=== PATIENT | female | born 1985 | race Caucasian/White ===

== ENCOUNTER 2021-12-30 18:01 | Emergency (ER) | payer BC ==
[~2021-12-30] VITALS: Ht 170.2 cm; Wt 79.1 kg
[2021-12-30] MEDS ORDERED: VITAMIN B122500 MCG PO (18:22)
[2021-12-30] MEDS ORDERED: CALCIUM500 MG PO (18:23)
[2021-12-30] MEDS ORDERED: VITAMIN D325 MC2 PO (18:23)
== END 2021-12-30 19:08 | disposition home or self-care (01) ==
LOC: ED 18:01
DX: S80.02XA Contusion of left knee, initial encounter (principal); Z79.899 Other long term (current) drug therapy; X58.XXXA Exposure to other specified factors, initial encounter
CPT/HCPCS: 93971; 99283-25

== ENCOUNTER 2023-10-06 06:10 | Inpatient (IN) | payer BC, OTHER ==
[~2023-10-06] VITALS: Ht 167.6 cm; Wt 93.0 kg
--- NOTE | ~2023-10-06 | OR ---
[facility] [address] [place], [place] [address] Draft DATE OF OPERATION: 10/07/2023 SURGEON: Pau Bean MD INSURANCE CLAIMS SUPERVISOR: Faisal. PREOPERATIVE DIAGNOSES: Term , advanced maternal age, intolerance to labor, persistent posterior. POSTOPERATIVE DIAGNOSES: Term , advanced maternal age, intolerance to labor, persistent posterior, delivered. PROCEDURE: Primary section with low segment transverse uterine incision. ANESTHESIA: Epidural. ESTIMATED BLOOD LOSS: 800 mL. DRAINS: Womack catheter. INDICATIONS AND FINDINGS: The patient is a 38-year-old female 2, para 1, admitted at 40 weeks for induction secondary to AMA. She underwent artificial rupture of membranes with clear fluid. She failed to make significant change and was begun on Pitocin. She then became more uncomfortable and made cervical change and at 7 cm requested and received an epidural. Subsequent to this, she had a prolonged deceleration followed by a tachycardic episode and this was followed by decreased variability with recurrent late decelerations. These were persistent despite the Pitocin being off for quite some time and receiving subcu terbutaline and multiple position changes. Because of this, it was felt that she needed to be delivered emergently, especially as her cervix had not made any further change. She was taken to the operating room where she was delivered of a little boy via lower segment transverse uterine incision as a deflexed ROP position with Apgars of 7 and 8 and weight of 9 pounds 15 ounces. Clear fluid was noted on entry into the uterus. The uterus, tubes, ovaries, and placenta otherwise were normal. PATIENT NAME: VANITA WHITE OPERATIVE REPORT DATE OF : 81 REPORT #: [id number] PHYSICIAN: PAU BEAN MD PCP: NO PRIMARY CARE PHYSICIAN REPORT IS CONFIDENTIAL AND NOT TO BE RELEASED WITHOUT AUTHORIZATION [facility] [address] [place], [place] [address] Draft DESCRIPTION OF PROCEDURE: The patient was prepped and draped in the supine position. A Pfannenstiel skin incision was made and carried down through the fascia. The incision was extended laterally. The inferior and superior fascial flaps were created. The muscles were bluntly divided and the peritoneum entered bluntly and the incision extended bluntly. The Long retractor was placed. The uterine incision was made at the upper aspect of the peritoneal reflection. The baby was delivered with the above findings and handed off to the pediatric staff in attendance. The placenta was removed manually and the uterus explored with a lap tape assuring no remaining fragments. The edges of the incision were identified and the uterus was closed in 2 layers using 0 Monocryl. The first layer was a running locking stitch and the second was a vertical imbricating stitch. Additional suture was required near the left angle for control of bleeding on the upper aspect of the incision. Following this, the abdomen was irrigated, inspected, and appeared to be hemostatic. The Long retractor was removed. The peritoneum was identified and closed with running suture of 3-0 Vicryl. The muscles were brought together with interrupted sutures of 0 Vicryl. Bleeding points on the fascia were controlled with cautery as were the bleeding points on the muscle. This layer was irrigated and inspected and good hemostasis was noted. The fascia was closed from each angle to the midline with a running suture of 0 Vicryl. The subcu was irrigated and bleeding points controlled with cautery. The deep space was reapproximated with interrupted sutures of 3-0 Vicryl. The skin was closed with albino. All sponge and needle counts were correct. She tolerated the procedure well and was taken to the recovery room in good condition. MD JONH Paris/HELADIO /[id number] Copies: ~ PATIENT NAME: VANITA WHITE MIAH OPERATIVE REPORT DATE OF : 81 REPORT #: [id number] PHYSICIAN: PAU BEAN MD PCP: NO PRIMARY CARE PHYSICIAN REPORT IS CONFIDENTIAL AND NOT TO BE RELEASED WITHOUT AUTHORIZATION
[~2023-10-06 06:10] MED LIST: CALCIUM500 MG PO; VITAMIN B122500 MCG PO; VITAMIN D325 MC2 PO
[2023-10-06 06:58] LABS: HEMATOCRIT 34.1 % (35.0-50.0); HEMOGLOBIN 11.1 g/dL (12.0-18.0); MCH 27.8 (27-36); MCHC 32.6 g/dl (30-36); MCV 85.4 fl (81-99); RDW 13.6 (10.5-15.0)
[2023-10-06 07:05] VITALS: BP 135/86
[2023-10-06 07:20] LABS: AMPHETAMINES, URINE NEGATIVE (NEGATIVE); BARBITURATES, URINE NEGATIVE (NEGATIVE); BENZODIAZEPINE, URINE NEGATIVE (NEGATIVE); BUPRENORPHINE, URINE NEGATIVE (NEGATIVE); CANNABINOID, URINE NEGATIVE (NEGATIVE); COCAINE, URINE NEGATIVE (NEGATIVE); ECSTASY, URINE NEGATIVE (NEGATIVE); FENTANYL, URINE NEGATIVE (NEGATIVE); METHADONE, URINE NEGATIVE (NEGATIVE); OPIATES, URINE NEGATIVE (NEGATIVE); OXYCODONE, URINE NEGATIVE (NEGATIVE); PHENCYCLIDINE, URINE NEGATIVE (NEGATIVE)
--- NOTE | 2023-10-06 07:41 | PR ---
[facility] [address] [facility] [place], [place] [address] Signed Progress Notes IP Datetime Report Generated by CHRISTIANO: 10/06/2023 07:41 PROGRESS NOTES: [id number] Impression: Reassuring Heart Rate Procedures: Artificial ROM Other Procedures: attempted Plan: Continue Present Management VITAL SIGNS: [id number] Vital Signs: Reviewed VS Notable Details: mild HTN EXAM: [id number] Dilatation: 2.5 Effacement: 70 Station: -2 Contractions: q 1 min, mild MEMBRANES: [id number] Comments: Feeling crampy but not too uncomfortable. AROM attempted but only small amount of blood seen. Will watch. FETUS A: [id number] FHR Baseline: 130 Variability: Moderate 6-25bpm Accelerations: 15X15 FHR Category: Category I Presentation: Vertex Comments on Fetus A: prev reactive FETUS B: [id number] Signing Physician: Pau Bean MD Copies: ~ *Electronically Signed* 10/06/23 0741 PAU BEAN MD PATIENT NAME: VANITA WHITE MIAH PROGRESS NOTE DATE OF : 81 PHYSICIAN: PAU BEAN MD RPT #: [id number] REPORT IS CONFIDENTIAL AND NOT TO BE RELEASED WITHOUT AUTHORIZATION
[2023-10-06 07:45] LABS: ABO A; RH POSITIVE
[2023-10-06 07:46] LABS: ANTIBODY SCREEN NEGATIVE
--- NOTE | 2023-10-06 13:29 | PR ---
[facility] [address] [place], [place] [address] Signed Progress Notes IP Datetime Report Generated by CPN: 10/06/2023 13:29 PROGRESS NOTES: [id number] Impression: Reassuring Heart Rate Procedures: Sterile Vag Exam Other Procedures: attempted Plan: Augmentation VITAL SIGNS: [id number] Vital Signs: Reviewed VS Notable Details: mild HTN EXAM: [id number] Dilatation: 3.0 Effacement: 70 Station: -2 Contractions: q 3 to 7 min MEMBRANES: [id number] Comments: Minimal progress. CTX still not regular and I feel augmentation needed. Discussed with pt and she is amenable. FETUS A: [id number] FHR Baseline: 130 Variability: Moderate 6-25bpm Accelerations: 15X15 Decelerations: None FHR Category: Category I Presentation: Vertex Comments on Fetus A: prev reactive FETUS B: [id number] Signing Physician: Pau Bean MD Copies: ~ *Electronically Signed* 10/06/23 1329 PAU BEAN MD PATIENT NAME: VANITA WHITE MIAH PROGRESS NOTE DATE OF : 81 PHYSICIAN: PAU BEAN MD RPT #: [id number] REPORT IS CONFIDENTIAL AND NOT TO BE RELEASED WITHOUT AUTHORIZATION
--- NOTE | 2023-10-06 18:08 | PR ---
[facility] [address] [facility] [place], [place] [address] Signed Progress Notes IP Datetime Report Generated by CPN: 10/06/2023 18:08 PROGRESS NOTES: [id number] Impression: Reassuring Heart Rate Procedures: Sterile Vag Exam Other Procedures: attempted Plan: Continue Present Management VITAL SIGNS: [id number] Vital Signs: Reviewed VS Notable Details: mild HTN EXAM: [id number] Dilatation: 3.0 Effacement: 70 Station: -2 Contractions: q 2 min MEMBRANES: [id number] Comments: Poor progress though labor pattern appears improved on pitocin augmentation. Will continue position changes. FETUS A: [id number] FHR Baseline: 130 Variability: Moderate 6-25bpm Accelerations: 15X15 Decelerations: None FHR Category: Category I Presentation: Vertex Comments on Fetus A: prev reactive FETUS B: [id number] Signing Physician: Pau Bean MD Copies: ~ *Electronically Signed* 10/06/23 1808 PAU BEAN MD PATIENT NAME: VANITA WHITE MIAH PROGRESS NOTE DATE OF : 81 PHYSICIAN: PAU BEAN MD RPT #: [id number] REPORT IS CONFIDENTIAL AND NOT TO BE RELEASED WITHOUT AUTHORIZATION
--- NOTE | 2023-10-06 20:16 | PR ---
[facility] [address] [place], [place] [address] Signed Progress Notes IP Datetime Report Generated by HON: 10/06/2023 20:16 PROGRESS NOTES: [id number] Impression: Reassuring Heart Rate Procedures: Intrauterine Pressure Catheter; Sterile Vag Exam Other Procedures: attempted Plan: Continue Present Management VITAL SIGNS: [id number] Vital Signs: Reviewed VS Notable Details: mild HTN EXAM: [id number] Dilatation: 4.0 Effacement: 80 Station: -2 Contractions: q 2 min MEMBRANES: [id number] Comments: Getting more uncomfortable. Some change in cervix. Will place IUPC as contractions may not be adequate. FETUS A: [id number] FHR Baseline: 130 Variability: Moderate 6-25bpm Accelerations: 15X15 Decelerations: None FHR Category: Category I Presentation: Vertex Comments on Fetus A: prev reactive FETUS B: [id number] Signing Physician: Pau Bean MD Copies: ~ *Electronically Signed* 10/06/232015 PAU BEAN MD PATIENT NAME: VANITA WHITE MIAH PROGRESS NOTE DATE OF : 81 PHYSICIAN: PAU BEAN MD RPT #: [id number] REPORT IS CONFIDENTIAL AND NOT TO BE RELEASED WITHOUT AUTHORIZATION
--- NOTE | 2023-10-06 21:43 | PR ---
[facility] [address] [place], [place] [address] Signed Progress Notes IP Datetime Report Generated by CHRISTIANO: 10/06/2023 21:43 PROGRESS NOTES: [id number] Impression: Normal Progression of Labor Procedures: Scalp Electrode Other Procedures: attempted Plan: Continue Present Management; Anesthesia Consult VITAL SIGNS: [id number] Vital Signs: Reviewed VS Notable Details: mild HTN EXAM: [id number] Dilatation: 6.0 Effacement: 100 Station: -2 Contractions: q 2 min MEMBRANES: [id number] Comments: Very uncomfortable now. Progressing well. Desires epidural. Anesthesia tied up in a case currently but will come when available. FETUS A: [id number] FHR Baseline: 130 Variability: Moderate 6-25bpm Accelerations: 15X15 Decelerations: None FHR Category: Category II Presentation: Vertex Comments on Fetus A: prev reactive FETUS B: [id number] Signing Physician: Pau Bean MD Copies: ~ *Electronically Signed* 10/06/23 2143 PAU BEAN MD PATIENT NAME: VANITA WHITE MIAH PROGRESS NOTE DATE OF : 81 PHYSICIAN: PAU BEAN MD RPT #: [id number] REPORT IS CONFIDENTIAL AND NOT TO BE RELEASED WITHOUT AUTHORIZATION
--- NOTE | 2023-10-06 22:11 | PR ---
[facility] [address] [facility] [place], [place] [address] Signed Progress Notes IP Datetime Report Generated by CPN: 10/06/2023 22:10 PROGRESS NOTES: [id number] Impression: Normal Progression of Labor; Reassuring Heart Rate Procedures: Sterile Vag Exam Other Procedures: attempted Plan: Continue Present Management VITAL SIGNS: [id number] Vital Signs: Reviewed VS Notable Details: mild HTN EXAM: [id number] Dilatation: 7.0 Effacement: 100 Station: -2 Contractions: q 2 min MEMBRANES: [id number] Comments: Progressing. Will try nitrous for pain management as anesthesia still unavailable. FETUS A: [id number] FHR Baseline: 130 Variability: Minimal - >Undetectable to <=5bpm Accelerations: 15X15 Decelerations: None FHR Category: Category II Presentation: Vertex Comments on Fetus A: prev reactive FETUS B: [id number] Signing Physician: Pau Bean MD Copies: ~ *Electronically Signed* 10/06/23 2210 PAU BEAN MD PATIENT NAME: VANITA WHITE MIAH PROGRESS NOTE DATE OF : 81 PHYSICIAN: PAU BEAN MD RPT #: [id number] REPORT IS CONFIDENTIAL AND NOT TO BE RELEASED WITHOUT AUTHORIZATION
--- NOTE | 2023-10-07 02:04 | NUR ---
10/07/23 0204 Mast,Yaima Garcia1: PATIENT ARRIVED TO [facility] ROOM 103 FOR RECOVERY. PATIENT SLEEPING. AWAKENS TO VOICE. DENIES PAIN. FALLS BACK TO SLEEP QUICKLY.
[2023-10-07 02:37] VITALS: BP 123/56
[2023-10-08 05:25] LABS: HEMATOCRIT 28.5 % (35.0-50.0); HEMOGLOBIN 9.3 g/dL (12.0-18.0); MCH 27.6 (27-36); MCHC 32.5 g/dl (30-36); MCV 85.1 fl (81-99); RBC 3.35 M/ul (4.3-5.7); RDW 13.8 (10.5-15.0)
--- NOTE | 2023-10-08 06:49 | PR ---
[facility] [address] [facility] [place], [place] [address] Signed PP Progress Notes Datetime Report Generated by CPYamini: 10/08/2023 06:49 SUBJECTIVE: [id number] Pain: Within Normal Limits Nausea/Vomiting: Denies Flatus: Yes Vital Signs: [id number] Vital Signs: Reviewed; Within Normal Limits Cardiovascular: Normal Respiratory: Normal Abdomen/Uterus: Abnormal Lochia: Normal Vulva/Perineum: Not Done Breasts: Not Done CVA Tenderness: Not Done Extremities: Abnormal Incision: Normal Progress: Normal Exam Comments: Abdomen with active BS. Fundus firm, NT @ U-1. H/H 9.3/28.5, WBC 14.4, plat 162k IMPRESSION/PLAN/PROCEDURES: [id number] Impression: Normal Progression Other Impression: anemia Other Plans: ambulate, shower Procedures: None Progress Notes: Doing well overall. Will increase ambulation and shower with probable home tomorrow. Signing Physician: Pau Bean MD Copies: ~ *Electronically Signed* 10/08/23 0649 PAU BEAN MD PATIENT NAME: WHITEVANITA VELAZQUEZ PROGRESS NOTE DATE OF : 81 PHYSICIAN: PAU BEAN MD RPT #: [id number] REPORT IS CONFIDENTIAL AND NOT TO BE RELEASED WITHOUT AUTHORIZATION
--- NOTE | 2023-10-09 11:11 | PR ---
[facility] [address] [place], [place] [address] Signed PP Progress Notes Datetime Report Generated by CPN: 10/09/2023 11:10 SUBJECTIVE: [id number] Pain: Within Normal Limits Nausea/Vomiting: Denies Flatus: Yes Vital Signs: [id number] Vital Signs: Reviewed; Within Normal Limits Cardiovascular: Not Done Respiratory: Not Done Abdomen/Uterus: Normal Lochia: Normal Vulva/Perineum: Not Done Breasts: Not Done CVA Tenderness: Not Done Extremities: Normal Incision: Normal Progress: Normal Exam Comments: Abdomen with active BS. Fundus firm, NT @ U-1. H/H 9.3/28.5, WBC 14.4, plat 162k IMPRESSION/PLAN/PROCEDURES: [id number] Impression: Normal Progression Other Impression: anemia Plan: Discharge Other Plans: ambulate, shower Procedures: None Progress Notes: S: 38 yo s/p RLTCS. POD #2. Denies BELTRAN, CP, SOB, F/C, N/V, RUQ pain, changes in vision, vaginal discharge. Ambulating, tolerating regular diet, voiding on own, pain controlled. O: AFVSS Abd: Soft. Non-tender. Fundus firm and below umbilicus. Incision C/D/I. No erythema or drainage. Musc: BAILEY. A/P: 38 yo s/p RLTCS. POD #2. Meeting all hospital milestones. Will discharge home today. Signing Physician: Bakari Malone MD *Electronically Signed* 10/09/23 1110 BAKARI MALONE MD PATIENT NAME: VANITA WHITE MIAH PROGRESS NOTE DATE OF : 81 PHYSICIAN: BAKARI MALONE MD RPT #: [id number] REPORT IS CONFIDENTIAL AND NOT TO BE RELEASED WITHOUT AUTHORIZATION [facility] [address] [place], [place] [address] Signed Copies: ~ *Electronically Signed* 10/09/23 1110 BAKARI MALONE MD PATIENT NAME: VANITA WHITE MIAH PROGRESS NOTE DATE OF : 81 PHYSICIAN: BAKARI MALONE MD RPT #: [id number] REPORT IS CONFIDENTIAL AND NOT TO BE RELEASED WITHOUT AUTHORIZATION
== END 2023-10-09 12:03 | disposition home or self-care (01) | DRG 788 ==
LOC: FBC 06:10
PROVIDERS: ADMIT Obstetrics & Gynecology; ATTEND Obstetrics & Gynecology
PROC: 10H07YZ Insertion of Other Device into Products of Conception, Via Natural or Artificial Opening (ICD-10-PCS; 2023-10-07)
PROC: 10D00Z1 Extraction of Products of Conception, Low, Open Approach (ICD-10-PCS; principal; 2023-10-07 01:06)
DX: O48.0 Post-term pregnancy (principal); Z37.0 Single live birth; O76 Abnormality in fetal heart rate and rhythm complicating labor and delivery; O16.4 Unspecified maternal hypertension, complicating childbirth; O90.81 Anemia of the puerperium; D64.9 Anemia, unspecified; Z3A.40 40 weeks gestation of pregnancy
CPT/HCPCS: 01961; 36415; 80307; 82803; 85027; 86850; 86900; 86901; A9270; J0456; J0690; J1200; J1790; J1885; J2001; J2274; J2405; J2590; J2765; J2795; J7121